=== PATIENT | female | born 1925 | race Caucasian/White ===

== ENCOUNTER → 2016-05-12 | Outpatient (REF) | payer MEDICARE, MEDICAID ==
[2016-05-12 20:27] LABS: BILIRUBIN,URINE Negative (Negative); CLARITY,URINE Clear; COLOR,URINE Yellow; GLUCOSE, URINE (UA) Negative (Negative); UROBILINOGEN,URINE 0.2 mg/dL (0.2-1.0)
[2016-05-12 20:42] LABS: LEUKOCYTE ESTERASE ,URINE 1+ (Negative)
[2016-05-12 20:44] LABS: URINE CENTRIFUGED VOLUME <10mL Unspun
[2016-05-12 21:11] LABS: RBC,URINE 0-2 /HPF
== END ==
LOC: LAB 19:21
PROVIDERS: ATTEND Family Medicine
DX: N39.0 Urinary tract infection, site not specified (principal)
CPT/HCPCS: 81003; 81015; 87077; 87088; 87186